=== PATIENT | female | born 1960 | race Caucasian/White ===

== ENCOUNTER 2017-01-26 07:14 | Day surgery (SDC) | payer OTHER ==
[2017-01-26] VITALS (8 sets, daily range): BP systolic 98–123; BP diastolic 54–71; PULSE 72–83; TEMP 36.5–37; O2SAT 92–99; Ht 160 cm; Wt 84.0 kg
[~2017-01-26] VITALS: Ht 160 cm; Wt 84.0 kg
[~2017-01-26 07:14] MED LIST: ALBUAER INH; ASPEC81 PO; CLON0.5T3 PO; SERT50TA PO; TPM25 PO
[2017-01-26] MEDS ORDERED: ASPI81TA28 PO (07:52)
[2017-01-26] MEDS ORDERED: ATEN-173 PO (07:53)
--- NOTE | 2017-01-26 09:42 | Discharge Instructions ---
Discharge Instructions Procedure Procedure Date: Jan 26, 2017. Reason for visit: W/Opening Press,Confusional State,Pressure In Head. Discharge Discharge Date: Jan 26, 2017. Discharge Diagnosis: s/p lumbar puncture Instructions Activity Recommendations: 1 Day-May resume regular activity, 48 Hours of decreased exertion Return to School/Work: no limitations Recommended Home Diet: No Limitations Provider Instructions: ACTIVITY RECOMMENDATIONS: * Rest today. * Resume regular activity in one day. MEDICATIONS: * May take Tylenol or Ibuprofen as needed for pain. DIET: * Resume previous diet. SPECIAL CARE INSTRUCTIONS: Call your doctor if: * Temperature above 101 degrees F. * Pain not relieved by pain medicine ordered. * Increased drainage or redness from incision. * Notify your doctor with any questions or concerns. Call your doctor or go to the nearest Emergency Department if you experience: * Increased chest pain or shortness of breath. FOLLOW UP VISIT: Follow-up with Referring Physician as scheduled. Allergies Coded Allergies: Morphine (Verified Allergy, Mild, 01/26/17) N/V Delilah Raines Recommendations: Call your doctor if: * Temperature above 101 degrees * Pain not relieved by pain medicine ordered * There is increased drainage or redness from any incision * You have any unanswered questions or concerns. Your Doctors Instructions noted above were prepared by provider Minesh Patricia. Patient Signature Section: Patient Instructions Signature Page Sofya Hernández Patient (or Guardian) Signature/Date: I have read and understand the instructions given to me by my caregivers. Caregiver/RN/Doctor Signature/Date: The above-named patient and/or guardian has received patient instructions on this date. + Original Patient Signature Page (only) stays with chart. Please make copy for patient.
--- NOTE | 2017-01-26 09:49 | DIAGNOSTIC IMAGING REPORT ---
FLUOROSCOPICALLY GUIDED LUMBAR PUNCTURE CLINICAL HISTORY: Head pressure. PROCEDURE: The procedure, risks and benefits were discussed with the patient including the risk of spinal headache, bleeding and infection. The patient agreed to the procedure and informed written consent was obtained. The procedure was performed by Dr. Patricia following a timeout. The right L4-L5 interlaminar space was targeted. Skin overlying the space was prepped and draped in sterile fashion and local anesthesia was achieved with 1% lidocaine. Under intermittent fluoroscopic guidance, a 5 inch, 22-gauge spinal needle was directed into the thecal sac with immediate return of clear CSF. Opening pressure was measured at 17.5 cm of water. 8 cc of clear CSF was collected in 4 vials and sent to laboratory as directed. The needle was removed. The patient tolerated the procedure well and no immediate complications were evident. One fluoroscopic image was obtained. Fluoroscopy time was 0.1 minutes. IMPRESSION: 1. Fluoroscopically guided lumbar puncture with collection of 8 cc of clear CSF. 2. Opening pressure of 17.5 cm of water. Electronically signed by: Minesh Patricia M.D. 01/26/2017 9:48 AM Dictated Date/Time: 01/26/2017 9:47 AM
[2017-01-26 10:03] LABS: CSF TOTAL PROTEIN 43.8 mg/dl (15.0-45.0)
[2017-01-26 10:31] LABS: CSF APPEARANCE CLEAR; CSF COLOR COLORLESS; CSF XANTHOCHROMIC NO XANTHOCHROMIA
[2017-01-31 07:25] LABS: ALBUMIN 4.1 g/dL (3.5-4.9); IGG CSF 2.1 mg/dL (0.8-7.7); IGG SERUM 778 mg/dL (694-1618); LYME DNA PCR CSF OR SYNOVIAL Not detected (Not Detected); LYME DNA SOURCE CSF; LYME IGG CSF NO BANDS DETECTED; LYME IGM CSF NO BANDS DETECTED; MYELIN BASIC PROTEIN 663 <2.0 mcg/L (0.0-4.0)
== END 2017-01-26 13:41 | disposition home or self-care (01) ==
LOC: C.ACU 07:14
PROVIDERS: ATTEND Psychiatry & Neurology Neurology
DX: R51 Headache (principal)

== ENCOUNTER → 2017-02-02 | Outpatient (CLI) | payer OTHER ==
[~2017-02-02] MED LIST changes: -ASPEC81 PO; +ASPI81TA28 PO; +ATEN-173 PO; -TPM25 PO
--- NOTE | 2017-02-02 17:22 | EEG Procedure Note ---
EEG Procedure Note Date of Service Feb 02, 2017. Start / End Times Start Time: 9:13 AM End Time: 9:33 AM Referring Physician Heather Hansen History This is a 57-year-old female with confusional episodes. EEG for further evaluation of possible seizure etiology. Home Medication List Scheduled Aspirin (Aspirin Ec), 81 MG PO DAILY Atenolol (Tenormin), 25 MG PO DAILY Sertraline (Zoloft), 50 MG PO DAILY Scheduled PRN Albuterol Sulfate (Proventil Hfa), 2 PUFFS INH Q6 PRN for SOB/Wheezing Clonazepam (Klonopin), 1 TAB PO BID PRN for Anxiety Description This is a 21 electrode EEG with a single channel dedicated to limited EKG. The electrodes were placed in accordance with the International 10-20 system. At the start of the recording the patient was in an awake state. Background was well organized and composed of symmetric mixed alpha and beta frequencies. There was a symmetric well-formed moderate amplitude 9-10Hz posterior dominant rhythm that was reactive to eye opening and closure. Hyperventilation with good effort produced no abnormalities. Intermittent photic stimulation at various frequencies produced no abnormalities. Drowsiness was indicated by loss of muscle artifact slowing of the background rhythm. There was no sleep transients. Interpretation This is a normal awake and drowsy routine EEG. There was no electrographic seizures or epileptiform discharges. Clinical Correlation A normal EEG does not rule out epilepsy if there is a strong clinical suspicion.
== END | disposition home or self-care (01) ==
LOC: C.NEUR 08:44
PROVIDERS: ATTEND Psychiatry & Neurology Neurology
DX: F44.89 Other dissociative and conversion disorders (principal)

== ENCOUNTER → 2017-07-25 | Outpatient (CLI) | payer OTHER ==
--- NOTE | 2017-07-27 16:26 | POLYSOMNOGRAPH REPORT ---
CLINICAL DATA: A 57-year-old female with BMI of 34.[address] Hansen with a history of constant fluctuating head pressure and headache since August 2016. The patient also has chronic daytime fatigue and falls asleep easily. On the evening of 07/25/2017, a home sleep apnea test was performed using a [employer] type 3 monitor. RECORDING RESULTS: Total recording time was 5.5 hours. The patient's monitoring time and estimated sleep time was 7.9 hours. RESPIRATORY DATA: Mild sleep apnea was documented. The CORY was 8.8. There were 56 obstructive and 1 central apneic episodes. There were 13 hypopneic episodes. The longest respiratory event was 34 seconds. OXIMETRY DATA: Intermittent nocturnal hypoxemia was seen. Oxygen laine was 74%. Mean saturation was 94%. Time below 89% was 6 minutes. HEART RATE DATA: Heart rates ranged from 58-70 beats per minute. SNORING DATA: Snoring was recorded throughout the night. SHEEP SHEARER'S COMMENTS: The patient did have snoring and apnea throughout the night. The majority of the episodes which occurred while the patient was supine. IMPRESSION: Mild sleep apnea/hypopnea with respiratory event index of 8.8 with nocturnal hypoxemia. The majority of the episodes occurred while supine. RECOMMENDATIONS: The patient may benefit from positional therapy, use of an oral appliance, or repeat sleep study with CPAP. Clinical correlation is needed. FELID
== END | disposition home or self-care (01) ==
LOC: C.NEUR 08:34
PROVIDERS: ATTEND Psychiatry & Neurology Neurology
DX: G47.30 Sleep apnea, unspecified (principal)